=== PATIENT | female | born 1955 | race Caucasian/White ===

== ENCOUNTER 2025-03-27 10:01 | Outpatient (OUT) | payer OTHER, SELFPAY ==
--- NOTE | 2025-03-27 | XR_ITS ---
The [address] [address] Patient Name: ROBB ACE MRN: [id number] date: 1955 Sex: F Assigned Patient Location: [facility] Current Patient Location: [facility] Accession/Order Number: [id number] Exam Date: 03/27/2025 10:55 Report Date: 03/27/2025 12:27 At the request of: ROBB GARCIA Procedure: XR shoulder NELSON min 2V Bilateral shoulders 4 views each Reason for exam: Bilateral shoulder pain. COMPARISON: None. FINDINGS: Right shoulder demonstrates mild degenerative changes involving the AC and glenohumeral joints without acute bony process. A similar process is seen involving the left shoulder. XR/XR shoulder NELSON min 2V IMPRESSION: Mild degenerative changes involving both shoulders without acute bony process. Impression dictated by: Pineda Aviles Jr., D.O. 03/27/2025 12:27 PM Dictation Location: [place] [address] Electronically authenticated by: [id number] Y Date: 03/27/2025 12:27
--- OUTSIDE RECORDS SUMMARY | 2025-03-27 10:04 | XMS_ITS | Clinical Summary ---
Author Organization [facility] Address [address], [address] [place] [address] Care Team Providers Care Barrel And Receiver Aligner Name Role Phone Ez Zarate MD Primary Care Provider [phone] Allergies No known active allergies Medications Zinc 10 MG LOZG Zinc Active 50 MG PO Daily December 05, 2022 12:00am 3 Active colchicine (COLCRYS) 0.6 MG tablet Take 1 tablet by mouth daily Mail to patient 90 tablet 1 4 Active tamsulosin (FLOMAX) 0.4 MG capsuleIndicatio ns:Benign prostatic hyperplasia without lower urinary tract symptoms Take 2 capsules by mouth daily Mail to patient 180 capsule 1 5 025 Active buPROPion (WELLBUTRIN SR) 150 MG extended release tabletIndication s:Anxiety,Depres daniele, unspecified depression type Take 1 tablet by mouth daily 90 tablet 1 5 Active allopurinol (ZYLOPRIM) 100 MG tablet Take 1 tablet by mouth 2 times daily Mail to patient 180 tablet 3 5 025 Active metFORMIN (GLUCOPHAGE-XR) 500 MG extended release tabletIndication s:Obesity (BMI 30-39.9) Take 1 tablet by mouth daily (with breakfast) 90 tablet 1 5 Active rivaroxaban (XARELTO) 20 MG TABS tabletIndication s:Factor 5 Leiden mutation, heterozygous Take 1 tablet by mouth daily (with breakfast) 90 tablet 5 Active gabapentin (NEURONTIN) 300 MG capsuleIndicatio ns:Chronic pain of both shoulders Take 1 capsule by mouth 2 times daily for 30 days. Start with Gabapentin 300mg hs, Intended supply: 30 days 60 capsule 5 025 Active metFORMIN (GLUCOPHAGE-XR) 500 MG extended release tabletIndication s:Obesity (BMI 30-39.9) Take 1 tablet by mouth daily (with breakfast) 90 tablet 1 4 025 Discontin ued(REORD ER) rivaroxaban (XARELTO) 20 MG TABS tablet Take 1 tablet by mouth daily (with breakfast) 20 tablet 5 025 Discontin ued(REORD ER) Active Problems Problem Noted Date Diagnosed Date Chronic pain of both shoulders 03/06/2025 Encounter for screening for malignant neoplasm o f colon 03/06/2025 Thrombophilia 10/31/2024 Acute pulmonary embolism 10/08/2024 Shortness of breath 10/08/2024 ACP (advance care planning) 07/08/2024 Elevated vitamin B12 level 05/24/2024 Obesity (BMI 30-39.9) 05/24/2024 Prediabetes 05/24/2024 Sleeping difficulty 07/06/2023 Bilateral hand numbness 03/28/2023 Hyperlipidemia 03/28/2023 Essential hypertension 03/28/2023 Hypovitaminosis D 03/28/2023 Benign prostatic hyperplasia without lower urinary tract symptoms 03/28/2023 Urinary frequency 12/29/2022 Acute pain of left knee 12/29/2022 Factor 5 Leiden mutation, heterozygous 3 Constipation 12/29/2022 Pain in left knee 04/06/2022 Elevated PSA 03/10/2021 Pulmonary embolism without acute cor pulmonale 0 11/17/2017 Overview (11/17/2017): 1982 Chronic deep vein thrombosis (DVT) of left lower extremity 11/17/2017 Overview (11/17/2017): 1982 Depression 05/10/2017 Obesity 02/24/2017 Hypertension 12/16/2016 Anxiety 09/16/2016 GERD (gastroesophageal reflux disease) Carpal tunnel syndrome Resolved Problems Problem Noted Date Diagnosed Date Resolved Date Colon cancer screening 07/08/202408/07 Colon cancer screening 05/24/202406/23 Diabetes mellitus screening 02/16/2024 03/17/2024 Medicare annual wellness visit, subsequent 07/06/2023 08/07/2024 Encounter for screening for malignant neoplasm of colon 07/06/2023 08/05/2023 Lipid screening 03/28/2023 04/27/2023 Screening PSA (prostate specific antigen) 03/28/2023 04/27/2023 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 10/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 Encounters Date Type Department Care Team Description 03/13/2025 Orders Only [address] [place] [address] ProviderWilfrido MD 03/06/2025 1:30 PM EDT Office Visit [address] [place] [address] Ez Zarate MD Essential hypertension [I10] (Primary Dx); Hyperlipidemia, unspecified hyperlipidemia type; Anxiety; Chronic pain of both shoulders; Factor 5 Leiden mutation, heterozygous; Encounter for screening for malignant neoplasm of colon 02/26/[address] [place] [address] Ez Zarate MD Medication Refill 01/29/[address] [place] [address] Ez Zarate MD Medication Problem 01/28/[address] [place] [address] Ez Zarate MD Medication Refill 01/27/[address] [place] [address] Ez Zarate MD Medication Refill 01/13/2025 [facility] [address] [place] [address] Ez Zarate MD Medication Refill from Last 3 Months Immunizations Immunization Administration Dates Next Due COVID-19, MODERNA BABAK [place], Primary or Immunocompromised, (age 12y+), IM, 100 mcg/0.5mL 11/27/2020,10/30/2020 Influenza Vaccine, unspecified formulation 06/15 Influenza Virus Vaccine 07/11/2019 Influenza, AFLURIA (age 3 y+ ), FLUZONE, (age 6 mo+), Quadv MDV, 0.5mL 07/11/2019 Influenza, FLUARIX, FLULAVAL , FLUZONE (age 6 mo+) and AFLURIA, (age 3 y+), Quadv PF, 0.5mL 06/15/2020,05/18/2018 Influenza, FLUARIX, FLULAVAL , FLUZONE, (age 6 mo+), AFLURIA, (age 3 y+), IM, Trivalent PF, 0.5mL 05/10/2017 Influenza, FLUCELVAX, (age 6 mo+), MDCK, Quadv PF, 0.5mL 07/09/2021 Pneumococcal, PCV20, PREVNAR 20, (age 6w+), IM, 0.5mL 07/25/2022 Family History Medical History Relation Name Comments Clotting Disorder Brother Yoshi Ramos Cancer Mother Maryuri Ramos MALIGANANT NEOP LASM OF LARGE INTESTINE Glaucoma Mother Maryuri Ramos Clotting Disorder Sister Demetria Warren Relation Name Status Comments Brother Yoshi Ramos Father Alive Mother Maryuri Ramos Sister Demetria Warren Social History Tobacco Use Types Packs/Day Years Used Date Smoking Tobacco: Never Smokeless Tobacco: Never Tobacco Cessation:Counseling Given: Not Answered Alcohol Use Standard Drinks/Week Comments Not Currently 0 (1 standard drink = 0.6 oz pur e alcohol) 1 drink a month [facility] Utilities Answer Date Recorded In the past 12 months has [employer], gas, oil, or water [employer] threatened to shut off services in your home? No 10/08/2024 AUDIT-C Answer Date Recorded Q1: How often do you have a drink containing alc ohol? Monthly or less 07/05/2024 Q2: How many drinks containi ng alcohol do you have on a typical day when you are drinking? 1 or 2 07/05/2024 Q3: How often do you have si x or more drinks on one occasion? Never 07/05/2024 Overall Financial Resource Strain (CARDIA) Answe r Date Recorded How hard is it for you to pa y for the very basics like food, housing, medical care, and heating? Not hard at all 03/28/2023 PHQ-2 Answer Date Recorded PHQ-9 Total Score 0 12/04/2024 Exercise Vital Sign Answer Date Recorde d On average, how many days pe r week do you engage in moderate to strenuous exercise (like a brisk walk)? 2 days 07/05/2024 On average, how many minutes do you engage in exercise at this level? 10 min 07/05/2024 Hunger Vital Sign Answer Date Recorded Within the past 12 months, y ou worried that your food would run out before you got the money to buy more. Never true 10/08/19 25 Within the past 12 months, t he food you bought just didn't last and you didn't have money to get more. Never true 10/08/2024 PRAPARE - Transportation Answer Date Re corded In the past 12 months, has l ack of transportation kept you from medical appointments or from getting medications? No 09/28 In the past 12 months, has l ack of transportation kept you from meetings, work, or from getting things needed for daily living? No 10/08/2024 Housing Stability Vital Sign Answer Joe e Recorded Unable to Pay for Housing in the Last Year Not o n file 03/28/2023 Number of Places Lived in the Last Year Not on f ile 03/28/2023 In the last 12 months, was t here a time when you did not have a steady place to sleep or slept in a long term (including now)? No 03/28/2023 Housing Stability Vital Sign Answer Joe e Recorded In the last 12 months, was t here a time when you were not able to pay the mortgage or rent on time? No 10/08/2024 In the past 12 months, how m any times have you moved where you were living? 0 10/08/2024 At any time in the past 12 m [facility], were you homeless or living in a long term (including now)? No 10/08/2024 Food Insecurity Answer Date Recorded Within the past 12 months, y ou worried that your food would run out before you got the money to buy more. 1 10/08/2024 Within the past 12 months, t he food you bought just didn't last and you didn't have money to get more. 1 10/08/2024 Interpersonal Safety Domain Source: IP Abuse Scr eening Answer Date Recorded Physical abuse Denies 10/05/2024 Verbal abuse Denies 10/05/2024 Emotional abuse Denies 10/05/2024 Financial abuse Denies 10/05/2024 Sexual abuse Denies 10/05/2024 Sex and Gender Information Value Date Recorded Sex Assigned at Male 12/04/2024 11:19 AM EDT Legal Sex Male 12:37 PM EST Gender Identity Male 05/09/2021 4:07 PM EDT Sexual Orientation Not on file Last Filed Vital Signs Vital Sign Reading Time Taken Comments Blood Pressure 118/70 03/06/2025 1:31 PM EDT Pulse 74 03/06/2025 1:31 PM EDT Temperature 36.3 C (97.3 F) 10/31/2024 3:20 PM EST Respiratory Rate 16 03/06/2025 1:31 PM EDT Oxygen Saturation 97% 03/06/2025 1:31 PM EDT Inhaled Oxygen Concentration - - Weight 110.9 kg (244 lb 9.6 oz) 03/06/2025 1:31 PM EDT Height 177.8 cm (5' 10 ) 03/06/2025 1:31 PM EDT Body Mass Index 35.1 03/06/2025 1:31 PM EDT Plan of Treatment Upcoming Encounters Date Type Department Care Team (Late st Contact Info) Description 05/15/2025 3:30 PM EDT Office Visit [facility] Part of [address] [address] Peg Cardoso MD [address] [place] [address] F/UER DVT right leg Factor 5 Leiden mutation, heterozygous (HCC) 06/09/2025 1:45 PM EDT Office Visit [facility] [address] [place] [address] [address] [place] [address] Ez Zarate MD [address] [place] [address] F/u med management Health Maintenance Due Date Last Done Comments DTaP/Tdap/Td vaccine (1 - Tdap) 1976 Colonoscopy 2002 Fecal-DNA (Cologuard): Average risk 2002 Sigmoidoscopy/CT colonography 2002 Shingles vaccine (1 of 2) 2007 Colorectal Cancer Screen 11/20/2021 FIT/FOBT: Average risk 11/20/2021 11/20/2020 COVID-19 Vaccine ( season) 2024 11/27/2020, 10/30/2020 Flu vaccine (#1) 03/28/2025 07/09/2021, , 07/11/2019, Additional history exists A1C test (Diabetic or Prediabetic) 05/15/2025 05/15/2024 Prostate Specific Antigen (PSA) Screening or Monitoring 05/15/2025 05/15/2024, 04/08/2023, 06/21/2021, Additional history exists Depression Monitoring 12/04/2025 12/04/2024, 025 Lipids 05/15/2029 05/15/2024, 04/28, 06/21/2021, Additional history exists Respiratory Syncytial Virus (RSV) or age 60 yrs+ (1 - 1-dose 75+ series) 2032 Pneumococcal 0-49 years Vaccine Discontinued 07/25/2022 Pneumococcal 50+ years Vaccine Completed 07/25/2022 Diabetes screen Discontinued 05/15/2024 Hepatitis A vaccine Aged Out No longe r eligible based on patient's age to complete this topic Hepatitis B vaccine Aged Out No longe r eligible based on patient's age to complete this topic Hepatitis C screen Discontinued Hib vaccine Aged Out No longer eligi ble based on patient's age to complete this topic Meningococcal (ACWY) vaccine Aged Out No longer eligible based on patient's age to complete this topic Meningococcal B vaccine Aged Out No l onger eligible based on patient's age to complete this topic Polio vaccine Aged Out No longer elig ible based on patient's age to complete this topic Procedures Procedure Name Priority Date/Time Associated Diagnosis Comments PSA 3RD GENERATION Routine 06/21/2021 9: 51 AM EDT LIPID PANEL W/ REFLEX DIRECT LDL Routine 06/21/2021 9:51 AM EDT POCT FECAL IMMUNOCHEMICAL TEST (FIT) Routine 11/20/2020 11:44 AM EDT Screening for malignant neoplasm of colon from Last 3 Months or Most Recently Relevant to Health Maintenance Results * POCT Fecal Immunochemical Test (FIT) (11/20/2020 11:44 AM EDT) Occult Blood Fecal Negative Control Present STOOL SPECIMEN / Unknown 11/20/2020 11:44 AM EDT Angel Prasad MD POINT OF CARE TEST ORDERABL ES Final Result from Last 3 Months or Most Recently Relevant to Health Maintenance Insurance [employer] MEDICARE Advance Directives * Full Code (Latest Code Status on File) Date Activated Date Inactivated Comments 07/08/2024 2:24 PM 10/05/2024 10:59 AM * DNR-CCA Date Activated Date Inactivated Comments 07/08/2024 2:23 PM 07/08/2024 2:24 PM Healthcare Agents on File Name Relationship Healthcare Agent Relationshi p Communication Angie Ramos Spouse Primary Decision Maker [email or web address] Care Teams Barrel And Receiver Aligner Relationship Specialty Start Date End Date Ez Zarate MD [address] [place] [address] PCP - General Family Medicine 12/29/22
--- OUTSIDE RECORDS SUMMARY | 2025-03-27 10:04 | XMS_ITS | Clinical Summary ---
Author Organization [facility] Address [id number] [address] [place] [address] Care Team Providers Care Bag Washer Name Role Phone Angel Prasad MD Primary Care Provider Unav ailable Allergies No known active allergies Medications allopurinoL (ZYLOPRIM) 100 mg tablet Take 100 mg by mouth. 0 Active buPROPion SR (WELLBUTRIN SR) 100 mg 12 hr tablet Wellbutrin SR 100 mg tablet, 12 hr sustained-relea se Take 1 tablet twice a day by oral route. Active colchicine (COLCRYS) 0.6 mg tablet Take 0.6 mg by mouth. 0 Active dabigatran etexilate (PRADAXA) 150 mg capsule Take 150 mg by mouth. 0 Active losartan-hydroC HLOROthiazide (HYZAAR) 50-12.5 mg per tablet Take 1 tablet by mouth. 0 Active acetaminophen (TYLENOL) 500 mg tablet Take 500 mg by mouth every 6 (six) hours as needed for pain. Active Active Problems No known active problems Family History Medical History Relation Name Comments Factor V Leiden deficiency Brother No Known Problems Father Cancer Mother Factor V Leiden deficiency Sister Relation Name Status Comments Brother Alive Father Alive Mother Sister Alive Social History Tobacco Use Types Packs/Day Years Used Date Smoking Tobacco: Never Smokeless Tobacco: Never Alcohol Use Standard Drinks/Week Comments Yes 0 (1 standard drink = 0.6 oz pur e alcohol) monthly Childcare Answer Date Recorded Childcare Unknown 03/23/2020 Employment Answer Date Recorded Employment Unknown 03/23/2020 Purpose - Life Answer Date Recorded Purpose and direction in life Unknown Sex and Gender Information Value Date Recorded Sex Assigned at Not on file Legal Sex Male 1:16 PM EDT Gender Identity Not on file Sexual Orientation Not on file Last Filed Vital Signs Vital Sign Reading Time Taken Comments Blood Pressure - - Pulse - - Temperature - - Respiratory Rate - - Oxygen Saturation - - Inhaled Oxygen Concentration - - Weight 104.3 kg (230 lb) 06/15/2020 8:12 AM EDT Height 180.3 cm (5' 11 ) 05/08/2020 10:03 AM EDT Body Mass Index 32.08 05/08/2020 10:03 AM EDT Plan of Treatment Health Maintenance Due Date Last Done Comments Depression Screening 1969 Tobacco Screening 1969 Adult BMI Screening 1975 DTaP,Tdap and Td Vaccines (1 - Tdap) 1976 Zoster (Shingles) Vaccine (1 of 2) 2007 Fall Risk Screening 2022 Influenza Vaccine 04/28/2025 06/15/2020, , 05/18/2018, Additional history exists Medical Devices Not on file Insurance [employer] Member Subscriber Plan / Payer (Ef fective 2019-Present) Name:Cindy Ramos Relation to Subscriber:Spouse Name:ADRI RAMOS Date of :1978 (Home) Address: [address] [place] [address] Payer ID:Not on file Type:Not on file Address: [place] [id number] Care Teams Bag Washer Relationship Specialty Start Date End Date Angel Prasad MD PCP - General Family Medicine 03/23/20
--- OUTSIDE RECORDS SUMMARY | 2025-03-27 10:06 | XMS_ITS | Encounter Summary ---
Author Organization [facility] Address [address], [address] [place] [address] Care Team Providers Care Hospital Product Specialist Name Role Phone Ez Zarate MD Primary Care Provider [phone] Encounter Details Date Type Department Care Team (Late st Contact Info) Description 03/13/[address] [facility] [address] [place] [address] ProviderWilfrido MD Social History Tobacco Use Types Packs/Day Years Used Date Smoking Tobacco: Never Smokeless Tobacco: Never Alcohol Use Standard Drinks/Week Comments Not Currently 0 (1 standard drink = 0.6 oz pur e alcohol) 1 drink a month [facility] Utilities Answer Date Recorded In the past 12 months has [employer], gas, oil, or water [employer] threatened to shut off services in your [...] place to sleep or slept in a usp (including now)? No 03/28/2023 Housing Stability Vital Sign Answer Joe e Recorded In the last 12 months, was t here a time when you were not able to pay the mortgage or rent on time? No 10/08/2024 In the past 12 months, how m any times have you moved where you were living? 0 10/08/2024 At any time in the past 12 m [facility], were you homeless or living in a usp (including now)? No 10/08/2024 Food Insecurity Answer [...] PM EDT Sexual Orientation Not on file documented as of this encounter Plan of Treatment Upcoming Encounters Date Type Department Care Team (Late st Contact Info) Description 05/15/2025 3:30 PM EDT Office Visit [facility] Part of [address] [id number] Peg Cardoso MD [address] [place] [address] F/UER DVT right leg Factor 5 Leiden mutation, heterozygous (HCC) 06/09/2025 1:45 PM EDT Office Visit [facility] [address] [place] [address] [address] [place] [id number] Ez Zarate MD [address] [place] [address] [address] [place] [address] F/u med management documented as of this encounter Procedures Procedure Name Priority Date/Time Associated Diagnosis Comments MRI SHOULDER RIGHT WO CONTRAST Routine 06/15/2020 2:56 PM EDT documented in this encounter Results * MRI SHOULDER RIGHT WO CONTRAST (06/15/2020 2:56 PM EDT) Anatomical Region Laterality Modality Shoulder, Chest, Arm Other us Historical Provider MD PELAYO MRI ORDERABLES Final Result documented in this encounter Visit Diagnoses Not on filedocumented in this encounter Additional Health Concerns Assessment Noted Time A fall risk assessment has been complete d for the patient 07/08/2024 1:57 PM EST documented as of this encounter Care Teams Hospital Product Specialist Relationship Specialty Start Date End Date Ez Zarate MD [address] [place] [address] [address] [place] [id number] PCP - General Family Medicine 12/29/22 documented as of this encounter
== END 2025-03-27 10:02 | disposition home or self-care (01) ==
LOC: RAD 10:01
PROVIDERS: Visit Provider Physician Assistant
DX: M25.511 Pain in right shoulder (principal); M25.512 Pain in left shoulder
CPT/HCPCS: 73030